=== PATIENT | male | born 1980 | race Native Hawaiian/Other Pacific Islander ===

== ENCOUNTER 2016-07-31 10:04 | Outpatient (CLI) | payer OTHER ==
[2016-07-31 10:18] LABS: PLATELET COUNT 224 K/uL (142-355)
== END 2016-07-31 19:06 | disposition home or self-care (01) ==
LOC: LABW 10:04
PROVIDERS: Internal Medicine Hematology & Oncology
DX: D45 Polycythemia vera (principal); F73 Profound intellectual disabilities
CPT/HCPCS: 36415; 85027; 99195